=== PATIENT | male | born 1970 | race Caucasian/White ===

== ENCOUNTER 2019-06-03 22:13 | Emergency (ER) | payer SELFPAY ==
--- NOTE | ~2019-06-03 | CT_ITS ---
EXAMINATION: CT abdomen pelvis wo con DATE: 06/03/2019 22:53 INDICATION: Low back pain TECHNIQUE: Computed tomography (CT) of the abdomen and pelvis was performed without intravenous contr ast. The dose-length product (DLP) was 382.48 mGy-cm. Automated exposure control and iterative recons truction technique were employed. COMPARISON: None FINDINGS: There is moderate emphysema of the visualized lung bases. There is a small sliding hiatal h ernia. The heart size is normal. Thin linear calcification along the anterior margin of the spleen ma y reflect prior injury. Within the limitations of noncontrast examination, the pancreas, gallbladder, and adrenal glands are normal. There is a 1.3 cm cyst in the right hepatic lobe. The kidneys are unr emarkable. There is distention of the urinary bladder. No pathologically enlarged abdominal or pelvic lymph nodes are identified. There is calcified atherosclerosis of the aorta and many of the other ar teries. There is no free intraperitoneal gas or evidence of bowel obstruction. There is an age-indeterminate burst fracture of L1 with retropulsion of fracture fragments 4 mm into the central spinal canal. There is a superior endplate fracture of L3. Both fractures are new since t he comparison examination. IMPRESSION: 1. Age-indeterminate burst fracture of L1 and superior endplate fracture of L3, new since the compari son examination. Reviewed, dictated and finalized at location A. IMPRESSION: 1. Age-indeterminate burst fracture of L1 and superior endplate fracture of L3, new since the comparison examination.
--- NOTE | ~2019-06-03 | XR_ITS ---
EXAMINATION: XR knee LT 3V DATE: 06/04/2019 00:57 INDICATION: Left knee injury. TECHNIQUE: 3 views of left knee were obtained. COMPARISON: Left knee radiographs 11/22/2009 FINDINGS: Bone alignment is normal. No fracture. There is mild osteoarthritis of lateral compartment. No knee joint effusion. IMPRESSION: 1. Mild left knee osteoarthritis. Reviewed, dictated and finalized at location A.
--- NOTE | ~2019-06-03 | CT_ITS ---
EXAMINATION: CT brain wo con INDICATION: Head injury COMPARISON: 07/06/2014 TECHNIQUE: Standard unenhanced head CT. The dose-length product (DLP) was 605.33 mGy-cm. The mA was a djusted according to patient size. Iterative reconstruction technique was employed. FINDINGS: There is no intracranial hemorrhage, acute infarction, or abnormal mass lesion. The ventric les are normal. There is no abnormal mass effect or midline shift. The lange-white matter differentiat ion is normal. The basal cisterns are patent. The orbits are normal. There is mild mucosal thickening of the paranasal sinuses. IMPRESSION: 1. No acute intracranial abnormality. Reviewed, dictated and finalized at location A.
--- NOTE | ~2019-06-03 | XR_ITS ---
EXAMINATION: XR hip LT 2V w AP pelvis DATE: 06/04/2019 00:57 INDICATION: Left hip injury. TECHNIQUE: An anteroposterior view of pelvis and 3 views of left hip were obtained. COMPARISON: Pelvis and left hip radiographs 02/26/2007 FINDINGS: There is dextrocurvature and mild spondylosis of lumbar spine. No fracture. There is mild o steoarthritis of the hips. IMPRESSION: 1. Mild osteoarthritis of the hips. Reviewed, dictated and finalized at location A.
--- NOTE | ~2019-06-03 | CT_ITS ---
EXAMINATION: CT cervical spine wo con DATE: 06/03/2019 22:52 INDICATION: Neck pain TECHNIQUE: Computed tomography (CT) of the cervical spine was performed without intravenous contrast. The dose-length product (DLP) was 191.65 mGy-cm. Automated exposure control and iterative reconstruc tion technique were employed. COMPARISON: 07/06/2014 FINDINGS: There are 3 mm of unchanged retrolisthesis of C5 on C6. There is stable moderate loss of in tervertebral disc space height at C5-6. There is no fracture. The odontoid is intact. The vertebral b vicenta heights are normal. There is emphysema in the lung apices. IMPRESSION: 1. Moderate cervical spondylosis at C5-6 without acute findings or significant interval change. Reviewed, dictated and finalized at location A.
--- NOTE | ~2019-06-03 | XR_ITS ---
EXAMINATION: XR chest 1V portable DATE: 06/04/2019 00:57 INDICATION: Chest injury. TECHNIQUE: A single frontal view of the chest was obtained. COMPARISON: Chest 2 views 08/21/2013 FINDINGS: The chest demonstrates clear lungs without pneumonia, pleural effusion, or pneumothorax. Th e heart size is normal. There is an old healed fracture of left clavicle. IMPRESSION: 1. No acute cardiopulmonary disease. Reviewed, dictated and finalized at location A.
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
[2019-06-03 22:23] VITALS: BP 158/102; PULSE 92; RESP 18; TEMP 36.7; O2SAT 94
[2019-06-03 22:40] LABS: Basophils Absolute Auto 0.1 K/mm3 (0.0-0.1); Basophils Percent Auto 2.1 % (0.2-1.2); Eosinophils Absolute Auto 0.3 K/mm3 (0-0.3); Hematocrit 50.2 % (42.0-52.0); Hemoglobin 17.4 g/dL (14.0-18.0); Immature Granulocyte Absolute 0.01 K/mm3 (0.00-0.031); Immature Granulocyte Percent A 0.2 % (0-0.5); Lymphocytes Percent Auto 32.2 % (18.3-44.2); Mean Corpuscular HGB Conc 34.7 g/dl (32-36); Mean Corpuscular Hemoglobin 33.7 pg (26-34); Mean Corpuscular Volume 97.1 fl (80-100); Mean Platelet Volume 10.1 fl (7.4-10.4); Monocytes Absolute Auto 0.5 K/mm3 (0.1-0.6); Monocytes Percent Auto 7.9 % (2.6-8.5); Neutrophils Absolute Auto 3.3 K/mm3 (1.3-6.7); Neutrophils Percent Auto 52.6 % (45.5-73.1); Platelet Count Result 178 k/mm3 (150-375); Red Blood Count 5.17 M/mm3 (4.6-6.20); Red Cell Distribution Width 13.9 % (11.5-14.5); White Blood Count 6.2 K/mm3 (4.5-10.0)
--- NOTE | 2019-06-03 22:55 | PC.NURSE ---
Pts mother called. Informed pt of this.
[2019-06-03 23:00] LABS: Alanine Aminotransferase 20 U/L (4-50); Albumin Level 4.2 g/dL (3.5-5.1); Alkaline Phosphatase 78 U/L (38-126); Aspartate Amino Transferase 63 U/L (17-59); Bilirubin,Total 0.5 mg/dL (0.2-1.3); Blood Urea Nitrogen 6 mg/dL (9-20); Calcium 8.6 mg/dL (8.4-10.2); Carbon Dioxide 24 mmol/L (22-30); Chloride 105 mmol/L (98-107); Estimated CRCL calculation 100 ml/min; Estimated Glomerular Filt Rate > 60; Glucose 90 mg/dL (75-110); Potassium 4.3 mmol/L (3.4-5.0); Sodium 138 mmol/L (137-145)
--- NOTE | 2019-06-03 23:11 | PC.NURSE ---
Pt states that he is unable to feel left leg mid thigh down. Pt states that this is nothing new and has been since he broke his back
[2019-06-03 23:14] LABS: Ethanol 332 mg/dL (<10)
[2019-06-03] MEDS: KETOROLAC 30 MG/ML VIAL (*BKC) IV PUSH (23:27)
[2019-06-03 23:28] VITALS: BP 142/99; PULSE 89; RESP 18; O2SAT 96
== END 2019-06-04 01:29 | disposition home or self-care (01) ==
PROVIDERS: Emergency Provider Emergency Medicine
DX: S39.012A Strain of muscle, fascia and tendon of lower back, initial encounter (principal); W17.81XA Fall down embankment (hill), initial encounter; F10.129 Alcohol abuse with intoxication, unspecified; Y90.8 Blood alcohol level of 240 mg/100 ml or more
CPT/HCPCS: 36415; 70450; 71045; 72125; 73502; 73521; 73562; 74176; 80053; 80307; 85025; 96374; 99284; J1885

== ENCOUNTER 2021-03-21 10:40 | Inpatient (IN) | payer OTHER, SELFPAY ==
--- NOTE | ~2021-03-21 | XR_ITS ---
EXAMINATION: XR foot LT min 3V EXAM DATE: 03/21/2021 12:58 INDICATION: 2nd toe wound, pain, erythema . TECHNIQUE: Left foot dorsoplantar, lateral and oblique projections obtained and reviewed. There is n o prior study for comparison. FINDINGS: Left metatarsal bones unremarkable. There are no bony erosions identified. There are n o acute fractures or dislocations identified. There is no subcutaneous gas. There is soft tissue swe lling over the 2nd toe, forefoot. There are no radiopaque foreign bodies. IMPRESSION: 1. XR foot LT min 3V exam without acute osseous findings. 2. Soft tissue swelling. Reviewed, dictated and finalized at location A. [employer]
[2021-03-21 11:30] VITALS: BP 139/79; PULSE 86; RESP 18; TEMP 36.6; O2SAT 95
--- NOTE | 2021-03-21 12:35 | ED.SKABFB ---
HPI - Skin/Abscess/Foreign Bdy General Chief complaint: Wound/Laceration Stated complaint: bite by a brown spider Time Seen by Provider: 03/21/21 12:35 Source: patient Mode of arrival: ambulatory Limitations: no limitations History of Present Illness HPI narrative: 51-year-old man comes in today complaining of pain, increasing redness, swelling of his left lower leg after he was bit by spider on the back of his left lower leg 12 days ago. He states initially there was a black ulceration and now there is drainage from the wound any has pain and swelling in his 2nd toe. He denies fever, nausea, vomiting, recent cough or cold symptom. MD complaint: rash, insect bite/sting and lesion Onset (ago): day(s) (12) Tetanus up to date: unsure Location: LLE Severity: severe Quality: burning and sharp Pain Consistency: constant Relieving factors: immobilization and other (Elevation) Exacerbating factors: palpation and movement Context: witnessed insect bite Associated symptoms: denies other symptoms Treatments prior to arrival: NSAID Related Data Home Medications Medication Instructions Recorded Confirmed No Home Medications 03/21/21 03/21/21 Allergies Allergy/AdvReac Type Severity Reaction Status Date / Time No Known Allergies Allergy Verified 03/21/21 11:36 Review of Systems Review of Systems: All systems reviewed & are unremarkable except as noted in HPI and below Constitutional: Constitutional: Denies chills and Denies fever(s) ENT: Denies nasal congestion and Denies sore throat Cardiovascular: Cardiovascular: Denies chest pain and Denies radiating jaw, neck or arm pain Respiratory: Respiratory: Denies cough, Denies dyspnea and Denies wheezing Gastrointestinal: Gastrointestinal: Denies abdominal pain, Denies diarrhea and Denies vomiting Genitourinary: Genitourinary: Denies hematuria Musculoskeletal: Musculoskeletal: Denies back pain, Reports arthralgias and Reports joint swelling (Right 2nd toe) Comments: Right 2nd toe Integumentary/Breasts: Skin/Breast: Denies pruritus, Denies erythema and Denies rash Neurologic: Denies vertigo, Denies dizziness and Denies syncope Hematologic/Lymphatic: Hematologic/Lymphatic: Denies easy bleeding and Denies easy bruising PMFSH Past Medical History Medical History (Updated 03/21/21 @ 14:21 by Jakub Pereira MD) Anxiety Clavicle fracture, shaft Depression Dislocation of right hand joint Hx of fracture of rib Previous known suicide attempt Right wrist fracture Spinal fracture Surgical History Surgical History H/O right wrist surgery History of spinal surgery Hx of shoulder surgery Rt. Social History Social History Smoking status: Smoker, status unknown Alcohol intake: current Gender identity (if verbalized by the patient): Male Exam Const: General: healthy appearing and alert Orientation/consciousness: patient oriented x3 Limitations: no limitations Other: Moderate acute distress. HENMT: Mouth: Yes moist mucous membranes Throat: posterior oropharynx normal Eyes: Conjunctivae: conjunctivae normal Pupils: Equal, round and reactive pupils present EOM: EOMs intact bilaterally Resp: Effort & Inspection: normal respiratory effort, not labored, no retractions, not tachypneic and no use of accessory muscles Auscultation: no rales, no rhonchi, wheezes (Expiratory throughout) and diminished lung sounds Other: Mildly prolonged expiratory phase Cardio: Rate: regular rate Rhythm: regular rhythm Heart sounds: no murmurs Skin: General skin exam: no jaundice and no pallor Other: Circumferential tenderness and erythema from the mid calf down through the toes. There is a 3 cm necrotic black ulceration with yellowish discharge in the posterior left calf. There is also a small ulceration over the dorsal DIP of the left 2nd toe. Neuro: General:
[2021-03-21] MEDS: HYDROcodone/acetaminophen (*CRX) 5-325 MG TABLET 1 TAB PO ×3 (13:08→23:11)
[2021-03-21 13:26] LABS: Basophils Absolute Auto 0.11 K/mm3 (0.00-0.10); Basophils Percent Auto 0.7 % (0.0-1.0); Eosinophils Absolute Auto 0.46 K/mm3 (0.02-0.50); Eosinophils Percent Auto 3.1 % (1.0-6.0); Hematocrit 48.9 % (40.0-54.0); Hemoglobin 16.9 g/dL (14.0-18.0); Immature Granulocyte Absolute 0.07 K/mm3 (0.00-0.00); Immature Granulocyte Percent A 0.5 % (0.0-0.0); Lymphocytes Absolute Auto 2.11 K/mm3 (1.10-4.50); Lymphocytes Percent Auto 14.2 % (18.0-42.0); Mean Corpuscular HGB Conc 34.6 g/dL (32.0-36.0); Mean Corpuscular Hemoglobin 33.1 pg (27.0-31.0); Mean Corpuscular Volume 95.9 fL (78.0-102.0); Mean Platelet Volume 9.1 fl (8.7-11.0); Monocytes Absolute Auto 1.13 K/mm3 (0.10-0.90); Monocytes Percent Auto 7.6 % (2.0-11.0); Neutrophils Percent Auto 73.9 % (50.0-70.0); Platelet Count Result 386 K/mm3 (150-420); Red Cell Distribution Width 13.2 % (11.6-14.4); White Blood Count 14.9 K/mm3 (4.8-10.8)
[2021-03-21 13:39] LABS: Alanine Aminotransferase 13 U/L (16-63); Albumin Level 3.4 g/dL (3.4-5.0); Alkaline Phosphatase 98 U/L (46-116); Anion Gap 12 mmol/L (8-16); Aspartate Amino Transferase 14 U/L (15-37); Bilirubin,Total 0.5 mg/dL (0.00-1.00); Blood Urea Nitrogen 9 mg/dL (7-18); CRP 2.6 mg/dL (0.0-0.9); Calcium 9.3 mg/dL (8.5-10.1); Carbon Dioxide 24 mmol/L (21-32); Chloride 97 mmol/L (98-108); Estimated CRCL calculation 81 ml/min; Estimated Glomerular Filt Rate > 60; Glucose 78 mg/dL (70-99); Osmolality Calculated 273 mOsm/kg (285-295); Potassium 3.6 mmol/L (3.5-5.1); Sodium 133 mmol/L (136-145); Total Protein 8.4 g/dL (6.4-8.2)
[2021-03-21 13:41] LABS: INR 1.1; Partial Thromboplastin Time 29.6 SEC (23.90-30.70); Prothrombin Time 11.2 Seconds (9.50-12.10)
[2021-03-21 13:42] LABS: Lactic Acid Reflex 1.2 mmol/L (0.4-2.0)
[2021-03-21 15:23] LABS: Add Urine Microscopic? NO; Appearance Urine Clear (Clear); Bilirubin Urine Negative (Negative); Blood Urine Negative (Negative); Color Urine Light Yellow (Yellow); Glucose Urine UA Negative (Negative); Ketones Urine Negative (Negative); Leukocyte Esterase Ur Negative LEU/UL (Negative); Nitrate Urine Negative (Negative); Protein Urine Negative (Negative); Urobilinogen Urine 0.2 mg/dL (0.2-1.0); pH Urine 5.5 (5.0-8.0)
[2021-03-21 15:47] VITALS: BP 122/83; PULSE 83; RESP 20; TEMP 36.7; O2SAT 95
[2021-03-21 15:50] VITALS: O2SAT 97; BMI 18.8
--- NOTE | 2021-03-21 15:50 | ADMGEN ---
This patient, Berto Kaufman, was admitted to 2nd Floor Room 204-2. Patient/family oriented to hospital policies and general routines including ID bracelet, bed and alarms, visiting hours, pain management, procedures, bathroom and other care routines, personal items, smoking policy, room service/diet, and visiting hours. Information on how to activate the Rapid Response Team has been discussed. Patient/Family are encouraged to report perceived risks to care and to ask questions if they do not understand what they are told or what they should do.
[2021-03-21 16:00] VITALS: BP 146/85; PULSE 89; RESP 20; TEMP 36.1; O2SAT 97
[2021-03-21] MEDS: ENOXAPARIN 40 MG/0.4 ML SYRINGE SUB-Q (16:50)
[2021-03-21] MEDS: NICOTINE (*PBKC) 21 MG PATCH 1 PATCH TRANSDERM (20:58)
[2021-03-22] VITALS: BP 119/81; PULSE 96; RESP 18; TEMP 36.5; O2SAT 97
[2021-03-22 05:08] LABS: Eosinophils Absolute Auto 0.48 K/mm3 (0.02-0.50); Eosinophils Percent Auto 4.7 % (1.0-6.0); Immature Granulocyte Absolute 0.05 K/mm3 (0.00-0.00); Immature Granulocyte Percent A 0.5 % (0.0-0.0); Lymphocytes Absolute Auto 1.61 K/mm3 (1.10-4.50); Lymphocytes Percent Auto 15.8 % (18.0-42.0); Mean Corpuscular HGB Conc 33.3 g/dL (32.0-36.0); Mean Corpuscular Hemoglobin 31.9 pg (27.0-31.0); Mean Corpuscular Volume 95.8 fL (78.0-102.0); Mean Platelet Volume 9.2 fl (8.7-11.0); Monocytes Absolute Auto 1.03 K/mm3 (0.10-0.90); Monocytes Percent Auto 10.1 % (2.0-11.0); Neutrophils Absolute Auto 6.9 K/mm3 (1.7-7.2); Neutrophils Percent Auto 67.9 % (50.0-70.0); Platelet Count Result 361 K/mm3 (150-420); Red Blood Count 5.01 M/mm3 (4.70-6.10); White Blood Count 10.2 K/mm3 (4.8-10.8)
[2021-03-22 05:19] LABS: Anion Gap 8 mmol/L (8-16); Blood Urea Nitrogen 10 mg/dL (7-18); Calcium 8.6 mg/dL (8.5-10.1); Carbon Dioxide 27 mmol/L (21-32); Chloride 97 mmol/L (98-108); Estimated CRCL calculation 82 ml/min; Estimated Glomerular Filt Rate > 60; Glucose 83 mg/dL (70-99); Osmolality Calculated 272 mOsm/kg (285-295); Potassium 4.1 mmol/L (3.5-5.1); Sodium 132 mmol/L (136-145)
[2021-03-22] MEDS: HYDROcodone/acetaminophen (*CRX) 5-325 MG TABLET 1 TAB PO ×3 (07:00→22:05)
[2021-03-22 08:00] VITALS: BP 133/88; PULSE 91; RESP 18; TEMP 36.4; O2SAT 98
[2021-03-22] MEDS: NICOTINE (*PBKC) 21 MG PATCH 1 PATCH TRANSDERM (09:05)
--- NOTE | 2021-03-22 09:31 | PM.IMHP ---
H&P: HPI History of Present Illness Date/Time: 03/22/21 09:31 this is a 51-year-old male presents with complaint of left lower leg pain redness and swelling secondary to an insect bite. Patient has a past medical history of anxiety, anemia depression. According to patient 12 days ago he was bitten by a spider while in the laundry room in his apartment building Patient notes that he did not do anything at home to treat his spider bite. Vital signs 119/81, 96, 18, 97.7, 97% on room air, wbc's 14.9, hemoglobin 16.9, hematocrit 48.9, platelets 386, sodium 138, potassium 3.5, sodium 133, potassium 3.6, BUN 9, creatinine, 9, creatinine 0.89, glucose 78, lactic acid 1.2, total bili 0.5, total bili 0.5, AST 14, ALT 13, CRP 2.6, x-ray of the foot indicates small tissue swelling.patient admitted for cellulitis secondary to spider bite will continue Rocephin and vancomycin . <PARAS Gerber - Last Filed: 03/22/21 10:45> Chief Complaint: swollen tender painful left lower leg extremity <PARAS Gerber - Last Filed: 03/22/21 10:45> Review of Systems Review of Systems: A 14 organ system Review of Systems was performed and pertinent positives included in the HPI, otherwise <PARAS Gerber - Last Filed: 03/22/21 10:45> [facility] Past Medical History Medical History: Medical History (Updated 03/22/21 @ 10:11 by PARAS Gerber) Anxiety Clavicle fracture, shaft Depression Dislocation of right hand joint Hx of fracture of rib Previous known suicide attempt Right wrist fracture Spinal fracture <PARAS Gerber - Last Filed: 03/22/21 10:45> Surgical History Surgical History: Surgical History H/O right wrist surgery History of spinal surgery Hx of shoulder surgery Rt. <PARAS Gerber - Last Filed: 03/22/21 10:45> Social History Social History: Social History Smoking packs per day: 1 Smoking cigarettes per day: 20.0 Years smoked: 40 Smoking pack-years: 40.00 Smoking status: Current every day smoker Tobacco type: cigarettes Alcohol intake: current Drinks per week: 12 Substance use: current Substance use type: marijuana Gender identity (if verbalized by the patient): Male Spiritual care concerns: No <PARAS Gerber - Last Filed: 03/22/21 10:45> Meds Home Medications and Allergies Home medications: Home Medications Medication Instructions Recorded Confirmed Type No Home Medications 03/21/21 03/21/21 History <PARAS Gerber - Last Filed: 03/22/21 10:45> Allergies/Adverse reactions: Allergies Allergy/AdvReac Type Severity Reaction Status Date / Time No Known Allergies Allergy Verified 03/21/21 11:36 <PARAS Gerber - Last Filed: 03/22/21 10:45> Vital Signs Vital Signs - 24 hr 03/21/21 11:30 03/21/21 15:47 03/21/21 15:50 Temperature 97.9 F 98.0 F Pulse Rate 86 83 Respiratory Rate 18 20 Blood Pressure 139/79 122/83 Pulse Oximetry 95 95 97 03/21/21 16:00 03/22/21 00:00 Temperature 96.9 F L 97.7 F Pulse Rate 89 96 Respiratory Rate 20 18 Blood Pressure 146/85 H 119/81 Pulse Oximetry 97 97 <PARAS Gerber - Last Filed: 03/22/21 10:45> Exam Narrative: GENERAL: This is a well-nourished, well-developed patient, in no apparent distress. HEAD: normocephalic, atraumatic. EYES: PERRL. Sclera clear/white. Vision is grossly intact. EARS: External ears normal, auditory canals clear and without drainage, TMs normal without perforation. Hearing grossly intact. NOSE: External nose normal with no obvious nasal discharge, nares without redness, no rhinorrhea. THROAT: Mucous membranes moist, posterior pharynx clear. NECK: Neck supple, non-tender without lymphadenopathy, masses or thyromegaly. CARDIOVASCULAR: Regular rate and rhythm without murmur
--- NOTE | 2021-03-22 13:20 | PCPTNOTE ---
no plan of care needed at this time due to patient not needing skilled PT intervention.
[2021-03-22 16:20] VITALS: BP 117/75; PULSE 81; RESP 16; TEMP 36.6; O2SAT 93
[2021-03-22] MEDS: traMADol HCL (*CRX) 25 MG TABLET PO (17:07)
[2021-03-22] MEDS: ENOXAPARIN 40 MG/0.4 ML SYRINGE SUB-Q (17:08)
[2021-03-22] MEDS: traZODone HCL 50 MG TABLET PO (21:54)
[2021-03-22 23:04] VITALS: BP 128/84; PULSE 88; RESP 17; TEMP 36.9; O2SAT 94
--- NOTE | 2021-03-23 00:03 | PC.NURSE ---
Date updated on pt whiteboard.
--- NOTE | 2021-03-23 01:27 | PC.NURSE ---
Pt was brought 550 ml of fresh ice water; pt is sleeping in bed on his back with the TV on and call light within reach.
--- NOTE | 2021-03-23 02:10 | PC.NURSE ---
Trash removed/replaced in pt room.
[2021-03-23 05:16] LABS: Hematocrit 45.6 % (40.0-54.0); Hemoglobin 14.9 g/dL (14.0-18.0); Mean Corpuscular HGB Conc 32.7 g/dL (32.0-36.0); Mean Corpuscular Hemoglobin 32.3 pg (27.0-31.0); Mean Corpuscular Volume 98.9 fL (78.0-102.0); Mean Platelet Volume 9.2 fl (8.7-11.0); Platelet Count Result 355 K/mm3 (150-420); Red Blood Count 4.61 M/mm3 (4.70-6.10); Red Cell Distribution Width 13.5 % (11.6-14.4)
[2021-03-23] MEDS: HYDROcodone/acetaminophen (*CRX) 5-325 MG TABLET 1 TAB PO (05:29)
[2021-03-23 05:32] LABS: Alanine Aminotransferase 12 U/L (16-63); Albumin Level 2.6 g/dL (3.4-5.0); Alkaline Phosphatase 73 U/L (46-116); Anion Gap 6 mmol/L (8-16); Aspartate Amino Transferase 12 U/L (15-37); Bilirubin,Total 0.3 mg/dL (0.00-1.00); Blood Urea Nitrogen 9 mg/dL (7-18); CRP 3.5 mg/dL (0.0-0.9); Calcium 8.6 mg/dL (8.5-10.1); Carbon Dioxide 31 mmol/L (21-32); Chloride 98 mmol/L (98-108); Estimated CRCL calculation 60 ml/min; Estimated Glomerular Filt Rate > 60; Glucose 105 mg/dL (70-99); Magnesium 1.9 mg/dL (1.8-2.4); Osmolality Calculated 278 mOsm/kg (285-295); Potassium 3.6 mmol/L (3.5-5.1); Sodium 135 mmol/L (136-145); Total Protein 7.3 g/dL (6.4-8.2)
[2021-03-23 08:00] VITALS: BP 138/87; PULSE 86; RESP 14; TEMP 36.4; O2SAT 98
[2021-03-23] MEDS: NICOTINE (*PBKC) 21 MG PATCH 1 PATCH TRANSDERM (09:00)
--- NOTE | 2021-03-23 11:52 | PM.DS ---
DS: Admitting Diagnosis Discharge Date 03/23/2020 Admitting Diagnosis cellulitis DS: Discharge Diagnosis Discharge Diagnosis (1) Cellulitis of foot: Code(s): L03.119 - Cellulitis of unspecified part of limb Status: Acute Assessment and Plan: secondary to spider bite WBCs 14.9>10.2 Lactic acid 1.[address] of the foot indicates soft tissue swelling. Rocephin and vancomycin day 1 blood culture and wound culture pending (2) Brown recluse spider bite: Qualifiers: Encounter type: initial encounter Injury intent: accidental or unintentional Qualified Code(s): T63.331A - Toxic effect of venom of brown recluse spider, accidental (unintentional), initial encounter Code(s): T63.331A - Toxic effect of venom of brown recluse spider, accidental (unintentional), initial encounter Status: Acute (3) Depression: Code(s): F32.9 - Major depressive disorder, single episode, unspecified Status: Acute Assessment and Plan: patient currently not on any home medication for depression (4) Anxiety: Code(s): F41.9 - Anxiety disorder, unspecified Status: Acute Assessment and Plan: Ativan started Ativan DS: Summary Hospital Course Reason for hospitalization: Cellulitis Hospital Course: this is a 51-year-old male presents with complaint of left lower leg pain redness and swelling secondary to an insect bite. Patient has a past medical history of anxiety, anemia depression. According to patient 12 days ago he was bitten by a spider while in the laundry room in his apartment building Patient notes that he did not do anything at home to treat his spider bite. Patient will discharge home with clindamycin and follow-up with Dr. Brooks and wound care. Patient condition has improved . The patient denies SOB, CP, palpitation, extremity numbness, lightheadedness, dizziness, constipation, diarrhea, chills, or fever. Patient denies cp, sob, palpitation, diarrhea, constipation, lightheadness, headache, dizziness or chills and fevers. Time Spent with Patient Time attestation: Total time spent providing and/or coordinating discharge services: Exam Narrative: GENERAL: This is a well-nourished, well-developed patient, in no apparent distress. HEAD: normocephalic, atraumatic. EYES: PERRL. Sclera clear/white. Vision is grossly intact. EARS: External ears normal, auditory canals clear and without drainage, TMs normal without perforation. Hearing grossly intact. NOSE: External nose normal with no obvious nasal discharge, nares without redness, no rhinorrhea. THROAT: Mucous membranes moist, posterior pharynx clear. NECK: Neck supple, non-tender without lymphadenopathy, masses or thyromegaly. CARDIOVASCULAR: Regular rate and rhythm without murmurs, gallops, or rubs. RESPIRATORY: Clear to auscultation. Breath sounds equal bilaterally. No wheezes, rales, or rhonchi. GASTROINTESTINAL: Abdomen soft, non-tender, nondistended. Bowel sounds are active. No hepato-splenomegaly, or palpable masses. No guarding. SKIN: Left posterial calf area with quarter-sized blackened area, ulceration to left foot second toe. Area edematous with erythema , tender and warm to touch NEURO: awake, alert, and oriented to person, place and time. There were no obvious focal neurologic abnormalities. EXTREMITIES: Normal range of motion. No edema. No calf tenderness. Negative Homans sign bilaterally. BACK: Nontender without deformity or crepitance. No flank tenderness. DS: Data Data Completed and Pending Labs on day of discharge: Labs from last 24 hours 03/23/21 03/23/21 04:53 04:53 WBC 9.0 RBC 4.61 L Hgb 14.9 Hct 45.6 MCV 98.9 MCH 32.3 H MCHC 32.7 RDW 13.5 Plt Count 355 MPV 9.2 Sodium 135 L Potassium 3.6 Chloride 98 Carbon Dioxide 31 Anion Gap 6 L BUN 9 Creatinine 1.14 Estim Creat Clear Calc 60 Estimated GFR > 60 Glucose 105 H Calculated
--- NOTE | 2021-03-23 13:16 | PC.NURSE ---
Pt discharged to home with stable VS. Pt instructed on wound care, medications, and up coming doctor appointment. Pt verbalized understanding of instructions. Pt taken by WC to family car.
--- NOTE | 2021-03-25 10:07 | PC.NURSE ---
Unable to contact for discharge call back.
--- NOTE | 2021-03-25 10:18 | PC.NURSE ---
Pt returned discharge call back. Pt states he received and understood the discharge instructions. Pt also states I had great care. This is the best hospital I've ever been in. I really appreciate all of you.
== END 2021-03-23 13:10 | disposition home or self-care (01) | DRG 383 ==
LOC: CHSED 14:21 → CHS2ND 15:05
PROVIDERS: Nurse Practitioner; Admitting Provider Emergency Medicine; Emergency Provider Emergency Medicine; Visit Provider Emergency Medicine
DX: L03.116 Cellulitis of left lower limb (principal); T63.331A Toxic effect of venom of brown recluse spider, accidental (unintentional), initial encounter; L03.032 Cellulitis of left toe
CPT/HCPCS: 36415; 73630; 80048; 80053; 81003; 83605; 83735; 85025; 85027; 85610; 85730; 86140; 87040; 87070; 87147; 87186; 87205; 96365; 96367; 96372; 97161; 99285; A9270; G0378; J0696; J1650; J3370

== ENCOUNTER 2023-03-23 11:46 | Emergency (ER) | payer OTHER, SELFPAY ==
--- NOTE | ~2023-03-23 | XR_ITS ---
Left Hand Technique: PA, oblique, and lateral views were obtained. Clinical History: Pain Findings: No acute fracture or dislocation is seen. There is old, healed fracture deformity of the fi fth metacarpal. There is orthopedic fusion hardware at the lateral aspect of the carpus and the base of the fifth metacarpal. There is fusion of the radius to the scaphoid and lunate, as well as fusion across the lateral capitate, lunotriquetral, and probably the capitate hamate articulations. There is moderate to advanced degenerative change of the triscaphe articulation. There are 2 orthopedic screw remnants at the third metacarpal. Soft tissues are unremarkable. Impression: No acute abnormality evident. Extensive fusions in the wrist, as detailed above, with orthopedic hardware at the lateral aspect of the wrist and fifth metacarpal. Correlate with surgical history. Reviewed, dictated and finalized at [facility]. [employer] MANAGER Impression: No acute abnormality evident. Extensive fusions in the wrist, as detailed above, with orthopedic hardware at the lateral aspect of the wrist and fifth metacarpal. Correlate with surgical h istory.
[2023-03-23 11:46] VITALS: BP 142/90; PULSE 78; RESP 17; TEMP 37; O2SAT 96
[2023-03-23 12:59] VITALS: BP 135/82; PULSE 92; RESP 17; TEMP 37; O2SAT 97
--- NOTE | 2023-03-23 13:12 | ED.EXTPRO ---
HPI - Extremity Problem General Chief complaint: Extremity Problem,Nontraumatic Stated complaint: left hand pain Time Seen by Provider: 03/23/23 11:50 Source: patient Mode of arrival: ambulatory Limitations: no limitations History of Present Illness HPI Narrative: patient is a 53-year-old male with a left hand pain. Patient was shoveling hay few months ago and started to have pain. He has been having decreasing worst left hand pain at site of prior fracture and hardware. MD Complaint: extremity pain Onset (ago): month(s) Pain Consistency: constant Location: left and other (hand) Severity scale (1-10): 5 Quality: stabbing and sharp Radiation: none Relieving factors: immobilization Exacerbating factors: palpation Associated symptoms: denies other symptoms Related Data Home Medications Medication Instructions Recorded Confirmed No Home Medications 03/23/23 03/23/23 Allergies Allergy/AdvReac Type Severity Reaction Status Date / Time No Known Allergies Allergy Verified 03/23/23 12:28 Review of Systems Review of Systems: All systems reviewed & are unremarkable except as noted in HPI and below Constitutional: Constitutional: Reports no additional constitutional complaints Eyes: Eyes: Reports no additional eye complaints ENT: Reports system reviewed and no additional complaints, except as documented Cardiovascular: Cardiovascular: Reports no additional cardiovascular complaints Respiratory: Respiratory: Reports no additional respiratory complaints Gastrointestinal: Gastrointestinal: Reports no additional gastrointestinal complaints Genitourinary: Genitourinary: Reports no additional male genitourinary complaints Musculoskeletal: Musculoskeletal: Reports no additional musculoskeletal complaints Integumentary/Breasts: Skin/Breast: Reports system reviewed and no additional complaints, except as docu Neurologic: Reports system reviewed and no additional complaints, except as documented Psychiatric: Psychiatric: Reports no additional psychiatric complaints Endocrine: Endocrine: Reports no additional endocrine complaints Hematologic/Lymphatic: Hematologic/Lymphatic: Reports no additional hematologic/lymphatic complaints Allergic/Immunologic: Allergic/Immunologic: Reports no additional allergic/immunologic complaints PMFSH Past Medical History Medical History Anxiety Clavicle fracture, shaft Depression Dislocation of right hand joint Hx of fracture of rib Previous known suicide attempt Right wrist fracture Spinal fracture Surgical History Surgical History H/O right wrist surgery History of spinal surgery Hx of shoulder surgery Rt. Social History Social History Smoking packs per day: 1 Smoking cigarettes per day: 20.0 Years smoked: 40 Smoking pack-years: 40.00 Smoking status: Current every day smoker Tobacco type: cigarettes Alcohol intake: current Drinks per week: 12 Substance use: current Substance use type: marijuana Gender identity (if verbalized by the patient): Male Spiritual care concerns: No Exam Const: General: healthy appearing Nutritional Appearance: well nourished Orientation/consciousness: patient oriented x3 HENMT: Head: normal to inspection Ears: external ears normal Face/Nose/Sinus: Normal external nose present Eyes: Conjunctivae: conjunctivae normal Pupils: Equal, round and reactive pupils present EOM: EOMs intact bilaterally Neck: Neck: normal visual inspection Chest: Chest palpation & inspection: normal inspection of the chest Resp: Effort & Inspection: normal respiratory effort and not labored Auscultation: clear to auscultation bilaterally and no crackles Cardio: Rate: regular rate Rhythm: regular rhythm Heart sounds: no murmurs GI: Inspection: non-distended GI P
== END 2023-03-23 12:59 | disposition home or self-care (01) ==
PROVIDERS: Emergency Provider Emergency Medicine
DX: S69.92XA Unspecified injury of left wrist, hand and finger(s), initial encounter (principal); F17.210 Nicotine dependence, cigarettes, uncomplicated; X58.XXXA Exposure to other specified factors, initial encounter
CPT/HCPCS: 73130; 99283